=== PATIENT | female | born 1960 | race African-American/Black ===

== ENCOUNTER 2018-08-22 09:59 | Emergency (ER) | payer MEDICAID ==
[~2018-08-22] VITALS: Ht 160 cm; Wt 116.0 kg
[2018-08-22] MEDS ORDERED: IBUPROFEN 600MG TABLET PO ONE (11:30)
[2018-08-22 14:34] VITALS: BP 131/69
== END 2018-08-22 14:34 | disposition home or self-care (01) ==
LOC: ER 09:59
DX: M79.642 Pain in left hand (principal); M25.561 Pain in right knee; M79.641 Pain in right hand; N64.4 Mastodynia; M25.531 Pain in right wrist; W18.39XA Other fall on same level, initial encounter; Y93.89 Activity, other specified; Y92.89 Other specified places as the place of occurrence of the external cause; Y99.8 Other external cause status
CPT/HCPCS: 71045; 73110; 73130; 73562; 99283